=== PATIENT | female | born 1950 | race Caucasian/White ===

== ENCOUNTER 2024-06-06 19:28 | Emergency (ER) | payer MEDICARE ==
[2024-06-06 19:39] VITALS: BP 132/81; PULSE 101; RESP 20
[2024-06-06 19:48] VITALS: TEMP 96.9
--- NOTE | 2024-06-06 19:48 | ED ---
General Adult HPI - General Chief complaint: Recheck/Abnormal Lab/Rx Stated complaint: Trach Complications Time Seen by Provider: 06/06/24 19:36 Source: EMS Mode of arrival: EMS - History of Present Illness Initial comments: Dictation was produced using [employer] dictation software. please excuse any grammatical, word or spelling errors. Chief Complaint: 74-year-old female presents with displaced tracheostomy History of Present Illness: Patient 74-year-old female she lives at the shelter. Patient was found just prior to arrival with her trach removed. It is unclear how long the trach was removed. It is unclear why patient has a trach. Patient at baseline is altered. There is other concerns from shelter staff. The ROS documented in this emergency department record has been reviewed and confirmed by me. Those systems with pertinent positive or negative responses have been documented in the HPI. All other systems are other negative and/or noncontributory. - Related Data Allergies Allergy/AdvReac Type Severity Reaction Status Date / Time SAUL Inhibitors Allergy Unknown Verified 06/06/24 19:43 amlodipine Allergy Unknown Verified 06/06/24 19:43 angiotensin II acetate, human Allergy Unknown Verified 06/06/24 19:43 ciprofloxacin [From Cipro] Allergy Unknown Verified 06/06/24 19:43 doxazosin Allergy Unknown Verified 06/06/24 19:43 hydralazine Allergy Unknown Verified 06/06/24 19:43 Review of Systems ROS Statement: Those systems with pertinent positive or pertinent negative responses have been documented in the HPI. ROS Other: All systems not noted in ROS Statement are negative. General Exam - General Exam Comments Initial Comments: PHYSICAL EXAM: General Impression: Alert, not in acute distress HEENT: Normocephalic atraumatic, extra-ocular movements intact, pupils equal and reactive to light bilaterally, mucous membranes moist, tracheostomy site clean dry and intact Cardiovascular: Heart regular rate and rhythm Chest: Able to complete full sentences, no retractions, no tachypnea Abdomen: abdomen soft, non-tender, non-distended, no organomegaly Musculoskeletal: Pulses present and equal in all extremities, no peripheral edema Motor: no focal deficits noted Neurological: CN II-XII grossly intact, no focal motor or sensory deficits noted Skin: Intact with no visualized rashes Course Vital Signs 06/06/24 19:34 Temperature 96.9 F L Pulse Rate 101 H Respiratory 20 Rate Blood Pressure 132/81 O2 Sat by Pulse 96 Oximetry - Reevaluation(s) Reevaluation #1: 06/06/24 20:11 More history was obtained from daughter at the bedside. 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 They were having difficulty weaning her from intubation warranting tracheostomy placement. This trach was placed in February of last year. Patient not on the vent anymore. However she still has a trach due to significant issues with pulmonary hygiene. There was no plan for tracheostomy removal according to daughter. She was told that she may need tracheostomy for the rest of her life. Daughter is not exactly sure what the dimensions of the tracheostomy was however she does feel like it was uncuffed and smaller than a 4 cuffed trach Procedures - Procedures Initial comment: 4 uncuffed tracheostomy was placed. The patient tolerated procedure well. Medical Decision Making - Medical Decision Making Was pt. sent in by a medical professional or institution (, PA, DIRECTOR AND PROFESSOR, urgent care, hospital, or shelter...) When possible be specific @ -No Did you speak to anyone other than the patient for history (EMS, parent, family, police, friend...)? What history was obtained from this source @ -See above Did you review nursing and triage notes (agree or disagree)? Why? @ -I reviewed and agree with nursing and triage notes Were old charts reviewed (outside hosp., previous admission, EMS record, old EKG, old radiological studies, urgent care reports/EKG's, shelter records)? Report findings @ -No old charts were reviewed Differential Diagnosis (chest pain, altered mental status, abdominal pain women, abdominal pain men, vaginal bleeding, musculoskeletal, weakness, fever, dyspnea, syncope, headache, dizziness, GI bleed, back pain, seizure, CVA, palpatations, mental health)? @ -Not applicable EKG interpreted by me (3pts min.). @ -None done X-rays interpreted by me (1pt min.). @ -Chest x-ray shows right pulmonary mass. Daughter states that patient has history of this CT interpreted by me (1pt min.). @ -None done U/S interpreted by me (1pt. min.). @ -None done What testing was considered but not performed or refused? (CT, X-rays, U/S, labs)? Why? @ -None What meds were considered but not given or refused? Why? @ -None Was smoking cessation discussed for >3mins.? @ -No Were there social determinants of health that impacted care today? How? (Homelessness, low income, unemployed, alcoholism, drug addiction, transp ortation, low edu. Level, literacy, decrease access to med. care, longterm, rehab)? @ -No Was there de-escalation of care discussed even if they declined (Discuss DNR or withdrawal of care, Hospice)? DNR status @ -No What co-morbidities impacted this encounter? (DM, HTN, Smoking, COPD, CAD, Cancer, CVA, ARF, Chemo, Hep., AIDS, mental health diagnosis, sleep apnea, morbid obesity)? @ -CVA with debility Was patient admitted / discharged? Hospital course, mention meds given and route, prescriptions, significant lab abnormalities, going to OR and other pertinent info. @ -74-year-old female with displaced trach. According to daughter patient had an 8 Shiley uncuffed tube. It is unclear how long the tube was displaced for. Vital signs are stable. Patient in no acute distress. Patient not vent dependent. An attempt was made to place a 4 Shiley cuffed tube however unsuccessful. For Shiley uncuffed tube was successfully placed. Patient stable. Patient will be discharged. Did you discuss the management of the patient with other professionals (professionals i.e. , PA, DIRECTOR AND PROFESSOR, lab, RT, psych nurse, healthcare social worker, word processor technician, teacher, accounts officer, casework supervisor)? Give summary @ -No Was critical care preformed (if so, how long)? @ -No Undiagnosed new problem with uncertain prognosis? @ -No Drug Therapy requiring intensive monitoring for toxicity (Heparin, Nitro, Insulin, Cardizem)? @ -No Were any procedures done? @ -No Diagnosis/symptom? Acute, or Chronic, or Acute on Chronic? Uncomplicated (without systemic symptoms) or Complicated (systemic symptoms)? @ -Displaced tracheostomy tube Side effects of treatment? @ -No Exacerbation, Progression, or Severe Exacerbation? @ -No Poses a threat to life or bodily function? How? (Chest pain, [place], [place], pneumonia, PE, COPD, DKA, ARF, appy, cholecystitis, CVA, Diverticulitis, Homicidal, Suicidal, threat to staff... and all critical care pts) @ -yes Disposition Clinical Impression: Tracheostomy, acute management Disposition: HOME SELF-CARE Condition: Good Instructions (If sedation given, give patient instructions): Tracheostomy Care (ED) Is patient prescribed a controlled substance at d/c from ED?: No Referrals: Shante Logan DO [Primary Care Provider] - 1-2 days Time of Disposition: 20:24
--- NOTE | 2024-06-06 20:16 | XR ---
EXAMINATION TYPE: XR chest 1V portable DATE OF EXAM: 06/06/2024 8:08 PM COMPARISON: None TECHNIQUE: XR chest 1V portable Portable AP radiograph of the chest. CLINICAL INDICATION:Female, 74 years old with history of trach displacement; FINDINGS: Lungs/Pleura: No pleural effusion or pneumothorax. Bilateral perihilar airspace opacities. Right lesvia hilar mass measuring up to 3.7 cm. Heart/mediastinum: Cardiomediastinal silhouette is enlarged. Prominence of the bilateral noble sugges ting pulmonary arterial hypertension. Musculoskeletal: No acute osseous pathology. Midline sternotomy wires are noted. Other findings: No tracheostomy cannula identified. IMPRESSION: 1. Right perihilar 3.7 cm mass. No prior imaging for comparison. Could represent a pulmonary mass ve rsus hilar adenopathy. Correlation with prior imaging is recommended otherwise consider further evalu ation with CT. 2. Bilateral perihilar subtle airspace opacities concerning for developing pulmonary edema versus in filtrates. [facility], , 06/06/2024 8:13 PM
[2024-06-06] MEDS: LORazepam 2 MG/ML INJ IM STA (20:31)
== END 2024-06-06 21:30 | disposition home or self-care (01) ==
LOC: EC 19:28
DX: J95.03 Malfunction of tracheostomy stoma (principal); Z86.73 Personal history of transient ischemic attack (TIA), and cerebral infarction without residual deficits
CPT/HCPCS: 71045; 99283; 96372; J2060

== ENCOUNTER 2024-06-17 15:40 | Emergency (ER) | payer MEDICARE ==
[2024-06-17 15:59] VITALS: BP 134/95; PULSE 97; RESP 18; TEMP 98
--- NOTE | 2024-06-17 16:19 | ED ---
Recheck HPI - General Chief Complaint: Recheck/Abnormal Lab/Rx Stated Complaint: Trach Issue Time Seen by Provider: 06/17/24 15:57 Source: patient, RN notes reviewed Mode of arrival: ambulatory Limitations: no limitations - History of Present Illness Initial Comments: This is a 74-year-old female with history of x 2 CVAs, DM and A-fib presenting from [facility] for removed tracheostomy tube today. Reported that patient pulled out her tracheostomy tube and is currently breathing well at 99% with 15 LPM nonrebreather. Patient coming from long-term and is otherwise unable to verbalize any other complaints. Unclear why tracheostomy was removed with history of removal earlier this month as well. Later in room, patient's son discussed possibility of leaving tracheostomy tube removed if patient should remove tube again. - Related Data Allergies Allergy/AdvReac Type Severity Reaction Status Date / Time SAUL Inhibitors Allergy Unknown Verified 06/17/24 15:59 amlodipine Allergy Unknown Verified 06/17/24 15:59 angiotensin II acetate, human Allergy Unknown Verified 06/17/24 15:59 ciprofloxacin [From Cipro] Allergy Unknown Verified 06/17/24 15:59 doxazosin Allergy Unknown Verified 06/17/24 15:59 hydralazine Allergy Unknown Verified 06/17/24 15:59 Review of Systems ROS Statement: Those systems with pertinent positive or pertinent negative responses have been documented in the HPI. ROS Other: All systems not noted in ROS Statement are negative. Past Medical History Past Medical History: Atrial Fibrillation, CVA/TIA, Diabetes Mellitus, Hyp ertension, Thyroid Disorder Past Surgical History: No Surgical Hx Reported Smoking Status: Unknown if ever smoked General Exam Limitations: no limitations General appearance: alert, in no apparent distress Head exam: Present: atraumatic, normocephalic, normal inspection Eye exam: Present: normal appearance, PERRL, EOMI. Absent: scleral icterus, conjunctival injection, periorbital swelling ENT exam: Present: normal exam, mucous membranes moist Neck exam: Present: normal inspection. Absent: tenderness, meningismus, lymphadenopathy Respiratory exam: Present: respiratory distress, rhonchi, accessory muscle use. Absent: wheezes, rales, stridor, decreased breath sounds, prolonged expiratory Cardiovascular Exam: Present: regular rate, normal rhythm, normal heart sounds. Absent: systolic murmur, diastolic murmur, rubs, gallop, clicks GI/Abdominal exam: Present: soft, normal bowel sounds. Absent: distended, tenderness, guarding, rebound, rigid Extremities exam: Present: normal inspection, full ROM, normal capillary refill. Absent: tenderness, pedal edema, joint swelling, calf tenderness Back exam: Present: normal inspection Neurological exam: Present: alert, altered, CN II-XII intact Psychiatric exam: Present: normal affect, normal mood Skin exam: Present: warm, dry, intact, normal color. Absent: rash Course Vital Signs 06/17/24 06/17/24 15:43 16:10 Temperature 98 F Pulse Rate 97 Respiratory 18 Rate Blood Pressure 134/95 O2 Sat by Pulse 99 Oximetry Fraction of 28 Inspired Oxygen (FIO2) Procedures - Procedures Initial comment: New tracheostomy tube inserted by Alice from RT without complication. Breath sounds auscultated bilaterally following procedure Medical Decision Making - Medical Decision Making Was pt. sent in by a medical professional or institution (, PA, CROSSING WATCHMAN, urgent care, hospital, or long-term...) When possible be specific @ -No Did you speak to anyone other than the patient for history (EMS, parent, family, police, friend...)? What history was obtained from this source @ -No Did you review nursing and triage notes (agree or disagree)? Why? @ -I reviewed and agree with nursing and triage notes Were old charts reviewed (outside hosp., previous admission, EMS record, old EKG, old radiological studies, urgent care reports/EKG's, long-term records)? Report findings @ -No old charts were reviewed Differential Diagnosis (chest pain, altered mental status, abdominal pain women, abdominal pain men, vaginal bleeding, weakness, fever, dyspnea, syncope, headache, dizziness, GI bleed, back pain, seizure, CVA, palpatations, mental health, musculoskeletal)? @ -Differential Dyspnea: Coronary syndrome, arrhythmia, tamponade, asthma, COPD, pulmonary embolism, pneumonia, pneumothorax, pulmonary effusion, anaphylaxis, diabetic ketoacidosis, flailed chest, pulmonary contusion, diaphragmatic rupture, anemia, neuromuscular, this is not meant to be an all-inclusive list. EKG interpreted by me (3pts min.). @ -Not done X-rays interpreted by me (1pt min.). @ -CXR shows tracheostomy tube projecting over trachea and 2 right perihilar masses as seen on prior x-ray. No evidence of pulmonary edema or consolidation. CT interpreted by me (1pt min.). @ -None done U/S interpreted by me (1pt. min.). @ -None done What testing was considered but not performed or refused? (CT, X-rays, U/S, labs)? Why? @ -None What meds were considered but not given or refused? Why? @ -None Did you discuss the management of the patient with other professionals (professionals i.e. DrAlexandre, PA, CROSSING WATCHMAN, lab, RT, psych nurse, social welfare clerk, dice manager, teacher, security officers and guards, case packer)? Give summary @ -No Was smoking cessation discussed for >3mins.? @ -No Was critical care preformed (if so, how long)? @ -No Were there social determinants of health that impacted care today? How? (Homelessness, low income, unemployed, alcoholism, drug addiction, transportation, low edu. Level, literacy, decrease access to med. care, [facility], rehab)? @ -No Was there de-escalation of care discussed even if they declined (Discuss DNR or withdrawal of care, Hospice)? DNR status @ -No What co-morbidities impacted this encounter? (DM, HTN, Smoking, COPD, CAD, Cancer, CVA, ARF, Chemo, Hep., AIDS, mental health diagnosis, sleep apnea, morbid obesity)? @ -None Was patient admitted / discharged? Hospital course, mention meds given and route, prescriptions, significant lab abnormalities, going to OR and other pertinent info. @ -Tracheostomy tube placed by Alice from RT without complication. Good lung sounds bilaterally following procedure without subcutaneous emphysema or protrusion of tracheostomy tip from anterior neck. CXR shows 2 right perihilar masses as seen on prior x-ray. No evidence of pulmonary edema or consolidation. Patient's son in room with made a request to leave tracheostomy removed if patient should remove again. [facility] so there is coordination of care[facility] Discussed patient with Dr. Galo. Undiagnosed new problem with uncertain prognosis? @ -No Drug Therapy requiring intensive monitoring for toxicity (Heparin, Nitro, Insulin, Cardizem)? @ -No Were any procedures done? @ -Alice from RT able to reinsert new tracheostomy tube with minimal difficulty and no complication. Thick white sputum produced from tube following procedure. Lung sounds auscultated bilaterally following procedure. Diagnosis/symptom? @ -Tracheostomy tube removal and replacement Acute, or Chronic, or Acute on Chronic? @ -Acute Uncomplicated (without systemic symptoms) or Complicated (systemic symptoms)? @ -Uncomplicated Side effects of treatment? @ -No Exacerbation, Progression, or Severe Exacerbation? @ -No Poses a threat to life or bodily function? How? (Chest pain, [place], [place], pneumonia, PE, COPD, DKA, ARF, appy, cholecystitis, CVA, Diverticulitis, Homicidal, Suicidal, threat to staff... and all critical care pts) @ -No Disposition Clinical Impression: Acute tracheostomy management Disposition: HOME SELF-CARE Condition: Good Instructions (If sedation given, give patient instructions): Tracheostomy Care (ED) Is patient prescribed a controlled substance at d/c from ED?: No Referrals: Shante Logan DO [Primary Care Provider] - 1-2 days Time of Disposition: 17:03
--- NOTE | 2024-06-17 16:48 | XR ---
EXAMINATION TYPE: XR chest 1V DATE OF EXAM: 06/17/2024 4:41 PM COMPARISON: Chest radiographs from 06/06/2024. CLINICAL INDICATION: Female, 74 years old with history of pulled out trach, post replacement; [facility] TECHNIQUE: XR chest 1V Frontal view of the chest. FINDINGS: Lungs/Pleura: Right perihilar bilobed masslike area measuring 33 and 28 mm There is no evidence of pleural effusion, focal consolidation, or pneumothorax. Pulmonary vascularity: Unremarkable. Heart/mediastinum: Cardiomediastinal silhouette is unremarkable. Musculoskeletal: No acute osseous pathology. Midline sternotomy wires are noted. Other findings: None Lines/Tubes: Tracheostomy cannula tip projecting over the trachea. IMPRESSION: 1. Tracheostomy cannula projecting over the trachea. 2. Right perihilar opacities may be fractionally smaller versus projection. [facility], , 06/17/2024 4:45 PM
== END 2024-06-17 18:19 | disposition home or self-care (01) ==
LOC: EC 15:40
DX: Z43.0 Encounter for attention to tracheostomy (principal); Z88.1 Allergy status to other antibiotic agents; Z88.8 Allergy status to other drugs, medicaments and biological substances; Z86.73 Personal history of transient ischemic attack (TIA), and cerebral infarction without residual deficits
CPT/HCPCS: 31502; 71045; 99283; 99284